=== PATIENT | female | born 2005 | race Two or more races ===

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

== ENCOUNTER 2025-02-06 19:02 | Inpatient (IN) | payer MEDICAID ==
[~2025-02-06] VITALS: Ht 160 cm; Wt 75.8 kg
[~2025-02-06 19:02] MED LIST: ACET500T58 PO; ALBUAER3 IN; AZITTAB PO; PRED20TA2 PO
--- NOTE | 2025-02-06 19:22 | ED.PDOC ---
History of Present Illness HPI Comments 20-year-old female came to ER for syncope. Patient states she had 2 syncopal attacks this week. Last episode was last night, she was at home, at the kitchen when she had a syncopal attack. States she was having headaches and dizziness all day. She denies any injury or pain after the fall. Chief Complaint: Syncope Time Seen by MD: 19:22 Primary Care Provider: WILMER Allergies: Coded Allergies: NO KNOWN ALLERGIES (Unverified , 02/27/21) Home Meds Active Scripts Azithromycin (Zithromax Z-Lalo) 250 Mg Tab, 250 MG PO DAILY, #1 PACK 0 Refills Prov:CARA CAVAZOS 08/09/22 Albuterol Sulfate (VENTOLIN MDI) 90 Mcg Ih, 2 PUFF IN QIDP, #1 INH 0 Refills Prov:CARA CAVAZOS 08/09/22 Prednisone (Prednisone) 20 Mg Tab, 20 MG PO BID for 5 Days, #10 TAB 0 Refills Prov:CARA CAVAZOS 08/09/22 Acetaminophen (Acetaminophen) 500 Mg Tab, 500 MG PO QIDP, #30 TAB 0 Refills Prov:CARA CAVAZOS 08/09/22 Information Source: Patient Mode of Arrival: Ambulatory Severity: Moderate Timing: Days Duration: Intermittent Past Medical History PAST MEDICAL HISTORY: Asthma Surgical History: Denies all surgeries 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 Family History Family History: Reviewed,noncontributory to illness Social History Smoker: Non-Smoker Alcohol: Denies ETOH Use Drugs: Denies Drug Use Lives In: Home Constitutional: denies: chills, diaphoresis, fatigue, fever, malaise, sweats, weakness, others EENTM: denies: blurred vision, double vision, ear bleeding, ear discharge, ear drainage, ear pain, ear ringing, eye pain, eye redness, hearing loss, mouth pain, mouth swelling, nasal discharge, nose bleeding, nose congestion, nose pain, photophobia, tearing, throat pain, throat swelling, voice changes, others Respiratory: denies: cough, hemoptysis, orthopnea, SOB at rest, shortness of breath, SOB with excertion, stridor, wheezing, others Cardiovascular: denies: chest pain, dizzy spells, diaphoresis, Dyspnea on exertion, edema, irregular heart beat, left arm pain, lightheadedness, palpitations, PND, syncope, others Gastrointestinal: denies: abdomen distended, abdominal pain, blood streaked bowels, constipated, diarrhea, dysphagia, difficulty swallowing, hematemesis, melena, nausea, poor appetite, poor fluid intake, rectal bleeding, rectal pain, vomiting, others Genitourinary: denies: abnormal vagina bleeding, burning, dyspareunia, dysuria, flank pain, frequency, hematuria, incontinence, pain, , vagina discharge, urgency, others Neurological: reports: dizziness, fainting, headache; denies: left sided numbness, left sided weakness, numbness, paresthesia, pre-existing deficit, right sided numbness, right sided weakness, seizure, speech problems, tingling, tremors, weakness, others Musculoskeletal: denies: back pain, gout, joint pain, joint swelling, muscle pain, muscle stiffness, neck pain, others Integumetry: denies: bruises, change in color, change in hair/nails, dryness, laceration, lesions, lumps, rash, wounds, others Allergic/Immunocompromised: denies: Difficulty Healing, Frequent Infections, Hives, Itching, others Hematologic/Lymphatic: denies: anemia, blood clots, easy bleeding, easy bruising, swollen glands, others Endocrine: denies: excessive hunger, excessive sweating, excessive thirst, excessive urination, flushing, intolerance to cold, intolerance to heat, unexplained weight gain, unexplained weight loss, others Psychiatric: denies: anxiety, bipolar disorder, depression, hopeless, panic disorder, schizophrenia, sleepless, suicidal, others Physical Exam General Appearance: No Apparent Distress, Normal HEENT: Normal ENT Inspection, Pharynx Normal, TMs Normal Neck: Full Range of Motion, Non-Tender, Normal, Normal Inspection Respiratory: Chest Non-Tender, Lungs Clear, No Accessory Muscle Use, No Respiratory Distress, Normal Breath Sounds Cardiovascular: No Edema, No JVD, No Murmur, No Gallop, Normal Peripheral Pulses, Regular Rate/Rhythm Breast Exam: Deferred Gastrointestinal: No Organomegaly, Non Tender, No Pulsatile Mass, Normal Bowel Sounds, Soft Genitalia: Deferred Pelvic: Deferred Rectal: Deferred Extremities: No calf tenderness, Normal capillary refill, Normal inspection, Normal range of motion, Non-tender, No pedal edema Musculoskeletal : Apperance: Normal Neurologic: Alert, 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 Was a procedure done?: No Differential Dx Considerations may include: Anemia, electrolyte imbalance, dehydration, syncope, headaches, seizure, pots syndrome X-Ray, Labs, Meds, VS Vital Signs Date Time Temp Pulse Resp B/P (MAP) Pulse Ox O2 Delivery O2 Flow Rate FiO2 02/06/25 19:06 98.7 83 13 130/76 99 98.7 Lab Test 02/06/25 20:30 02/06/25 19:37 Range/Units Troponin I High Sensitivity < 3 L < 3 L </=34 ng/L White Blood Count 6.4 4.4-10.8 10^3/uL Red Blood Count 4.43 4.0-5.20 10^6/uL Hemoglobin 13.8 12.2-16.2 g/dL Hematocrit 39.4 36.0-46.0 % Mean Corpuscular Volume 88.9 80.0-100.0 fL Mean Corpuscular Hemoglobin 31.2 28.0-32.0 pg Mean Corpuscular Hemoglobin Concent 35.1 32.0-36.0 g/dL Red Cell Distribution Width 13.4 11.8-14.3 % Platelet Count 252 140-450 10^3/uL Mean Platelet Volume 7.9 6.9-10.8 fL Neutrophils (%) (Auto) 55.4 37.0-80.0 % Lymphocytes (%) (Auto) 31.1 10.0-50.0 % Monocytes (%) (Auto) 11.0 0.0-12.0 % Eosinophils (%) (Auto) 2.1 0.0-7.0 % Basophils (%) (Auto) 0.4 0.0-2.0 % Neutrophils # (Auto) 3.6 1.6-8.6 10 ^3/uL Lymphocytes # (Auto) 2.0 0.4-5.4 10 ^3/uL Monocytes # (Auto) 0.7 0-1.3 10 ^3/uL Eosinophils # (Auto) 0.1 0-0.8 10 ^3/uL Basophils # (Auto) 0 0-0.2 10 ^3/uL Nucleated Red Blood Cells 0.1 % Sodium Level 141 136-145 mmol/L Potassium Level 4.8 3.5-5.1 mmol/L Chloride Level 105 98-107 mmol/L Carbon Dioxide Level 29 20-31 mmol/L Anion Gap 7 5-15 Blood Urea Nitrogen 13 9-23 mg/dL Creatinine 0.84 0.550-1.02 mg/dL Glomerular Filtration Rate Calc 102 >90 mL/min BUN/Creatinine Ratio 15.5 10.0-20.0 Serum Glucose 106 74-106 mg/dL Calcium Level 9.8 8.7-10.4 mg/dL Time of 1ST Reevaluation: 19:19 Reevaluation 1ST: Unchanged Patient Education/Counseling: Diagnosis, Treatment, Prognosis, Need For Follow Up Family Education/Counseling: No Family Present Comments Patient presents with multiple episodes of syncope. Although here we have not capture any arrhythmias, episodes, and the workup has been negative, with her multiple episodes, she will be admitted for monitoring of cardiac rhythms and further workups. SEPSIS Sepsis Screen Date sepsis recognized/suspect: Feb 06, 2025 Time Sepsis recognized/suspect: 1905 Recent Procedure: No On Antibiotic Therapy: No Respiratory Rate >20: No Heart Rate >90: No Temp<36 C (96.8 F) or >38.3 C: No SBP <90 or MAP <65 mmHG: No New Acute Mental Status Change: No Is the patient on CPAP, BIPAP,: No Physician Orders Continuous Ekg Monitoring 08,12,16,20,00,04 (02/06/25 19:24) Electrocardigram (02/06/25 19:24) Chest Xray 1 View (02/06/25 19:24) Test, Urine (02/06/25 19:24) Troponin-I Hs (02/06/25 22:24) Electrocardigram (02/06/25 20:24) Electrocardigram (02/06/25 22:24) Vital Signs Date Time Temp Pulse Resp B/P (MAP) Pulse Ox O2 Delivery O2 Flow Rate FiO2 02/06/25 19:06 98.7 83 13 130/76 99 98.7 Laboratory Tests Test 02/06/25 19:37 White Blood Count 6.4 10^3/uL (4.4-10.8) Departure 1 Departure Time of Disposition: 21:58 Impression: Primary Impression: Syncope Qualified Codes: R55 - Syncope and collapse Disposition: 09 ADMITTED INPATIENT Admit to: Tele Condition: Serious Discharged With: Self Critical Care Note Critical Care Time?: Yes (55 min-critical care time only) Critical care comment: Due to concerns for patients condition deteriorating, the care required my highest level of attention and readiness to intervene. I assessed the patient, reviewed the medical records, ordered the appropriate tests and treatments, then reassessed for results and responsiveness. I communicated with medical personnel and consultants and formulated a plan of care. Total critical care time excludes any procedures Stability Stability form required: No Heart Score Heart Score: Heart Score Response (Comments) Value History Slightly Suspicious 0 EKG Normal 0 Age <45 0 Risk Factors No known risk factors 0 Troponin Normal limit 0 Total 0 I personally scribed for SHELBY GLEZ MD ([email or web address]) on 02/06/25 at 19:22. Electronically submitted by Lawrence Cheung ([facility]). SHELBY GLEZ MD Feb 06, 2025 19:22
[2025-02-06 19:55] LABS: Hematocrit 39.4 % (36.0-46.0); Hemoglobin 13.8 g/dL (12.2-16.2); Mean Corpuscular Hemoglobin 31.2 pg (28.0-32.0); Mean Corpuscular Volume 88.9 fL (80.0-100.0); Nucleated Red Blood Cells % 0.1 %
[2025-02-06 20:14] LABS: Chloride 105 mmol/L (98-107); Potassium 4.8 mmol/L (3.5-5.1); Sodium 141 mmol/L (136-145)
[2025-02-06 20:15] LABS: Anion Gap 7 (5-15); Carbon Dioxide 29 mmol/L (20-31)
[2025-02-06 20:16] LABS: Calcium 9.8 mg/dL (8.7-10.4)
[2025-02-06 20:20] LABS: BUN/Creatinine Ratio 15.5 (10.0-20.0); Blood Urea Nitrogen 13 mg/dL (9-23)
[2025-02-06 20:22] LABS: Glucose 106 mg/dL (74-106)
[2025-02-07] VITALS (10 sets, daily range): BP systolic 104–126; BP diastolic 59–76; PULSE 17–101; RESP 17–20; TEMP 97.6–99.4; O2SAT 96–99
--- NOTE | 2025-02-07 00:29 | DVHHPRES ---
History of Present Illness Resident Creating Document: HAILE MONROE RESIDENT History of Present Illness Jayla Swenson is a 20 years with no past medical history who came to the ED with chief complaints of two episodes of syncope 1 on Sunday and 1 on evening. Patient states that she felt dizzy and had a severe frontal headache and mild shortness of breath before having these episodes, but did not have post confusion and was alert. As per mother patient lost consciousness for approximately 1-2 minutes. She also states that she was swollen in her hands and feet when this happened. Patient states that she did not have any head trauma after falling. Patient also states that she always has heavy bleeding with the menstruation since she was 13 years old. She states that she is sexually active. Patient will be admitted for further management. Surgical history: Denies Family history: Mother has vertigo Personal history: Denies smoking, drinking, any drug use Lives with: family PCP: Dr. Cohen Review of Systems Constitutional: Yes: Other (Dizziness); No: Fever, Chills, Sweats, Weakness, Malaise Eyes: No: Pain, Vision change, Conjunctivae inflammation, Eyelid inflammation, Other, Redness ENT: No: Ear pain, Ear discharge, Nose pain, Nose discharge, Nose congestion, Mouth pain, Mouth swelling, Throat pain, Throat swelling, Other Respiratory: Shortness of breath; No: Cough, Dry, SOB with excertion, Wheezing, Hemoptysis, Pleuritic Pain, Sputum, Wheezing, Other Cardiovascular: No: Chest Pain, Palpitations, Orthopnea, Paroxysmal Noc. Dyspnea, Edema, Lt Headedness, Other Gastrointestinal: No: Nausea, Vomiting, Abdominal Pain, Diarrhea, Constipation, Melena, Hematochezia, Other Genitourinary: No Dysuria, No Frequency, No Incontinence, No Hematuria, No Retention, No Other Skin: No: Rash, Lesions, Jaundice, Bruising, Other Neurological: Other (Headache,); No: Weakness, Numbness, Incoordination, Change in speech, Confusion, Seizures Allergies: Coded Allergies: NO KNOWN ALLERGIES (Unverified , 02/27/21) Exam Vital Signs Vital Signs Date Time Temp Pulse Resp B/P (MAP) Pulse Ox O2 Delivery O2 Flow Rate FiO2 02/07/25 00:04 98.5 67 18 112/72 (85) 97 98.5 Exam General: Patient alert and oriented in person, place and time. Patient followi ng commands. HEENT: Normocephalic, atraumatic, moist mucous membranes Respiratory/pulmonary: Clear lungs bilaterally, vesicular murmurs present in almost all lung dasilva, no associated crackles or wheezes. Cardiovascular: Normal heart sounds S1 and S2 with no associated murmurs Abdomen: Abdomen nondistended, there is no pain to palpation in any of the abdominal quadrants, no palpable masses. Extremities: There is no peripheral edema present at the lower extremities. Peripheral Pulses: 3+ Radial (R). 3+ Radial (L). 3+ Dorsalis pedis (R). 3+ Dorsalis pedis(L) Skin: No rashes or pruritus, there is no sacral edema present at this time. Neurological: Intact cranial nerves with no focal neurologic deficits Psych/mood: Normal Labs/Xrays Labs Test 02/06/25 20:30 02/06/25 19:37 Range/Units Troponin I High Sensitivity < 3 L </=34 ng/L White Blood Count 6.4 4.4-10.8 10^3/uL Red Blood Count 4.43 4.0-5.20 10^6/uL Hemoglobin 13.8 12.2-16.2 g/dL Hematocrit 39.4 36.0-46.0 % Mean Corpuscular Volume 88.9 80.0-100.0 fL Mean Corpuscular Hemoglobin 31.2 28.0-32.0 pg Mean Corpuscular Hemoglobin Concent 35.1 32.0-36.0 g/dL Red Cell Distribution Width 13.4 11.8-14.3 % Platelet Count 252 140-450 10^3/uL Mean Platelet Volume 7.9 6.9-10.8 fL Neutrophils (%) (Auto) 55.4 37.0-80.0 % Lymphocytes (%) (Auto) 31.1 10.0-50.0 % Monocytes (%) (Auto) 11.0 0.0-12.0 % Eosinophils (%) (Auto) 2.1 0.0-7.0 % Basophils (%) (Auto) 0.4 0.0-2.0 % Neutrophils # (Auto) 3.6 1.6-8.6 10 ^3/uL Lymphocytes # (Auto) 2.0 0.4-5.4 10 ^3/uL Monocytes # (Auto) 0.7 0-1.3 10 ^3/uL Eosinophils # (Auto) 0.1 0-0.8 10 ^3/uL Basophils # (Auto) 0 0-0.2 10 ^3/uL Nucleated Red Blood Cells 0.1 % Sodium Level 141 136-145 mmol/L Potassium Level 4.8 3.5-5.1 mmol/L Chloride Level 105 98-107 mmol/L Carbon Dioxide Level 29 20-31 mmol/L Anion Gap 7 5-15 Blood Urea Nitrogen 13 9-23 mg/dL Creatinine 0.84 0.550-1.02 mg/dL Glomerular Filtration Rate Calc 102 >90 mL/min BUN/Creatinine Ratio 15.5 10.0-20.0 Serum Glucose 106 74-106 mg/dL Calcium Level 9.8 8.7-10.4 mg/dL SEPSIS Sepsis Screen Date sepsis recognized/suspect: Feb 06, 2025 Time Sepsis recognized/suspect: 1905 Recent Procedure: No On Antibiotic Therapy: No Respiratory Rate >20: No Heart Rate >90: No Temp<36 C (96.8 F) or >38.3 C: No SBP <90 or MAP <65 mmHG: No New Acute Mental Status Change: No Is the patient on CPAP, BIPAP,: No Physician Orders Continuous Ekg Monitoring 08,12,16,20,00,04 (02/06/25 19:24) Electrocardigram (02/06/25 19:24) Chest Xray 1 View (02/06/25 19:24) Test, Urine (02/06/25 19:24) Electrocardigram (02/06/25 20:24) Electrocardigram (02/06/25 22:24) Emergency Dysrhythmia Protocol (02/06/25 23:06) Admit (02/07/25 00:25) Allergies (02/07/25 00:25) Code Status (02/07/25 00:25) Ondansetron Hcl (Zofran) (02/07/25 00:30) Complete Blood Count (02/07/25 04:00) Comprehensive Metabolic Panel (02/07/25 04:00) Condition: Serious (02/07/25 00:25) Acetaminophen Tablet (Tylenol Tablet) (02/07/25 00:30) Bedrest With Bathroom Privileg (02/07/25 00:25) Vital Signs Date Time Temp Pulse Resp B/P (MAP) Pulse Ox O2 Delivery O2 Flow Rate FiO2 02/07/25 00:04 98.5 67 18 112/72 (85) 97 98.5 02/06/25 19:06 98.7 83 13 130/76 99 98.7 Laboratory Tests Test 02/06/25 19:37 White Blood Count 6.4 10^3/uL (4.4-10.8) Assessment/Plan Assessment/Plan Assessment and plan # syncope likely ? Vasovagal other causes not ruled out yet -EKG - troponins negative - BNP - D-dimer - Echocardiogram - Chest x-ray - Head CT - Orthostatic vitals - TSH - B12 - Folate Goals of care addressed with the patient for more than 31 minutes: Full code status Case discussed with , patient and nurse Plan discussed with: Patient My Orders Orders - HAILE MONROE RESIDENT Procedure Category Date Status Time Admit ADMIT 02/07/25 Transmitted 00:25 Allergies KEENAN 02/07/25 In Process 00:25 Code Status CODE 02/07/25 Transmitted 00:25 Ondansetron Hcl PHA 02/07/25 Transmitted (Zofran) 00:30 Complete Blood Count LAB 02/07/25 Transmitted 04:00 Comprehensive LAB 02/07/25 Transmitted Metabolic Panel 04:00 Condition: Serious KEENAN 02/07/25 In Process 00:25 Acetaminophen Tablet PHA 02/07/25 Transmitted (Tylenol Tablet) 00:30 Bedrest With Bathroom KEENAN 02/07/25 In Process Privileg 00:25 Date of Service: Feb 07, 2025 Billing Provider: KEEGAN REYES MD Common Visit Codes: 91596-LLBAAHI INP/OBS CARE (HIGH) Secondary Visit Codes: 53812-RCTLVHUO CARE PLAN 30 MINUTES HAILE MONROE RESIDENT Feb 07, 2025 00:29 EBEN MARTINEZ RESIDENT Feb 07, 2025 08:10
[2025-02-07] MEDS ORDERED: ONDANSETRON HCL 4 MG/2 ML VIAL IV PRN (00:30)
[2025-02-07 04:48] LABS: Hematocrit 40.5 % (36.0-46.0); Hemoglobin 14.0 g/dL (12.2-16.2); Mean Corpuscular Hemoglobin 30.9 pg (28.0-32.0); Mean Corpuscular Volume 89.3 fL (80.0-100.0); Nucleated Red Blood Cells % 0.1 %
[2025-02-07 05:04] LABS: Alanine Aminotransferase 18 U/L (7-40); Albumin 4.4 g/dL (3.2-4.8); Alkaline Phosphatase 47 U/L (46-116); Anion Gap 8 (5-15); BUN/Creatinine Ratio 10.7 (10.0-20.0); Bilirubin, Total 0.5 mg/dL (0.2-1.0); Calcium 9.3 mg/dL (8.7-10.4); Carbon Dioxide 28 mmol/L (20-31); Chloride 104 mmol/L (98-107); Glucose 85 mg/dL (74-106); Potassium 4.6 mmol/L (3.5-5.1); Sodium 140 mmol/L (136-145); Total Protein 7.1 g/dL (5.7-8.2)
[2025-02-07 05:08] LABS: Blood Urea Nitrogen 8 mg/dL (9-23)
--- NOTE | 2025-02-07 05:31 | DVH ---
CHEST RADIOGRAPH Indication: SYNCOPE Technique: 1 view Comparison: XY CHEST XRAY 1 VIEW on DOS: 08/08/22, CHEST PORTABLE on DOS: 02/27/21 FINDINGS: Lines and Tubes: External leads. Lungs/Pleura: No focal consolidation, pleural effusion or pneumothorax. Cardiomediastinum: Unremarkable. Other: No acute osseous abnormality. IMPRESSION: 1. No acute cardiopulmonary abnormality.
[2025-02-07 12:23] LABS: Urine Protein, UAD Negative (Negative)
[2025-02-07 13:21] LABS: Amphetamine Screen, Urine Neg (NEGATIVE); Barbiturate Scree,Urine Neg (NEGATIVE); Benzodiazephine Screen, Urine Neg (NEGATIVE); Cannabinoid Screen, Urine Neg (NEGATIVE); Cocaine Screen, Urine Neg (NEGATIVE); Opiate Scree,Urine Neg (NEGATIVE); Phencyclidine Screen, Urine Neg (NEGATIVE)
--- NOTE | 2025-02-07 15:34 | DVH ---
CLINICAL INFORMATION: Syncope. Question stroke. TECHNIQUE: Axial imaging was obtained through the brain without contrast. Coronal and sagittal reform atted images were obtained, reviewed, and stored. Images were reviewed in brain and bone windows. Al l CT scans at this medical facility are performed using dose modulation techniques as appropriate to a performed exam including the following: Automated exposure control was utilized; adjustment of the MA and/or KV according to patient size; and use of iterative reconstruction technique. CTDIvol = 53.1 8 mGy DLP = 746.24 mGy-cm COMPARISON: None FINDINGS: There is no acute intracranial hemorrhage. No mass effect or midline shift. The ventricles and sulci are within normal limits in size for age. Basal cisterns are patent. The calvarium is unre markable. Paranasal sinuses and mastoid air cells are clear. IMPRESSION: No CT evidence of acute intracranial abnormality. Correlate with clinical findings. If clinically ind icated, MRI could be obtained to further evaluate for stroke.
[2025-02-07] MEDS: ACETAMINOPHEN 325 MG TAB PO PRN (20:02)
[2025-02-08 01:00] VITALS: BP 109/64; PULSE 97; RESP 20; TEMP 97.3; O2SAT 97
[2025-02-08 05:00] VITALS: BP 97/70; PULSE 85; RESP 20; TEMP 97.2; O2SAT 98
[2025-02-08 06:22] LABS: Hematocrit 39.0 % (36.0-46.0); Hemoglobin 13.9 g/dL (12.2-16.2); Mean Corpuscular Hemoglobin 31.4 pg (28.0-32.0); Mean Corpuscular Volume 88.0 fL (80.0-100.0); Nucleated Red Blood Cells % 0.1 %
[2025-02-08 06:28] LABS: Anion Gap 10 (5-15); Carbon Dioxide 26 mmol/L (20-31); Chloride 105 mmol/L (98-107); Potassium 4.2 mmol/L (3.5-5.1); Sodium 141 mmol/L (136-145)
[2025-02-08 06:29] LABS: Calcium 9.4 mg/dL (8.7-10.4)
[2025-02-08 06:34] LABS: BUN/Creatinine Ratio 12.2 (10.0-20.0); Blood Urea Nitrogen 11 mg/dL (9-23); Glucose 91 mg/dL (74-106)
[2025-02-08 08:00] VITALS: PULSE 63; PULSE 89; RESP 17; O2SAT 98
[2025-02-08 09:00] VITALS: BP 106/64; PULSE 89; RESP 17; TEMP 98.1; O2SAT 98
--- NOTE | 2025-02-08 13:20 | DVHDS2 ---
Discharge Summary Date of Admission Feb 07, 2025 at 00:25 Date of Discharge: Feb 08, 2025 Admitting Diagnosis Syncope possible secondary to vasovagal Labs/Diagnostic Data: Laboratory Results Test 02/08/25 05:35 02/07/25 11:30 02/07/25 04:00 02/07/25 00:46 White Blood Count 6.3 10^3/uL (4.4-10.8) Red Blood Count 4.43 10^6/uL (4.0-5.20) Hemoglobin 13.9 g/dL (12.2-16.2) Hematocrit 39.0 % (36.0-46.0) Mean Corpuscular Volume 88.0 fL (80.0-100.0) Mean Corpuscular Hemoglobin 31.4 pg (28.0-32.0) Mean Corpuscular Hemoglobin Concent 35.7 g/dL (32.0-36.0) Red Cell Distribution Width 13.8 % (11.8-14.3) Platelet Count 250 10^3/uL (140-450) Mean Platelet Volume 8.1 fL (6.9-10.8) Neutrophils (%) (Auto) 51.8 % (37.0-80.0) Lymphocytes (%) (Auto) 33.2 % (10.0-50.0) Monocytes (%) (Auto) 12.6 % (0.0-12.0) Eosinophils (%) (Auto) 2.2 % (0.0-7.0) Basophils (%) (Auto) 0.2 % (0.0-2.0) Neutrophils # (Auto) 3.3 10 ^3/uL (1.6-8.6) Lymphocytes # (Auto) 2.1 10 ^3/uL (0.4-5.4) Monocytes # (Auto) 0.8 10 ^3/uL (0-1.3) Eosinophils # (Auto) 0.1 10 ^3/uL (0-0.8) Basophils # (Auto) 0 10 ^3/uL (0-0.2) Nucleated Red Blood Cells 0.1 % Sodium Level 141 mmol/L (136-145) Potassium Level 4.2 mmol/L (3.5-5.1) Chloride Level 105 mmol/L (98-107) Carbon Dioxide Level 26 mmol/L (20-31) Anion Gap 10 (5-15) Blood Urea Nitrogen 11 mg/dL (9-23) Creatinine 0.90 mg/dL (0.550-1.02) Glomerular Filtration Rate Calc 94 mL/min (>90) BUN/Creatinine Ratio 12.2 (10.0-20.0) Serum Glucose 91 mg/dL (74-106) Calcium Level 9.4 mg/dL (8.7-10.4) Urine Color Light-yellow (Yellow) Urine Clarity Turbid (Clear) Urine pH 6.5 (5.0-9.0) Urine Specific [place] 1.017 (1.001-1.035) Urine Protein Negative (Negative) Urine Ketones Negative (Negative) Urine Blood Negative /uL (Negative) Urine Nitrite Negative (Negative) Urine Bilirubin Negative (Negative) Urine Urobilinogen Normal mg/dL (Negative) Urine Leukocyte Esterase Negative /uL (Negative) Urine RBC 8 /hpf (0 - 4) Urine Microscopic WBC 2 /HPF (0-5) Urine Squamous Epithelial Cells Mod /hpf (<5) Urine Bacteria Few /hpf (None Seen) Urine Mucus Few (None Seen) Urine Glucose Normal mg/dL (Normal) Urine Test Negative (Negative) Urine Opiates Screen Neg (NEGATIVE) Urine Fentanyl Screen Neg (NEGATIVE) Urine Barbiturates Screen Neg (NEGATIVE) Urine Phencyclidine Screen Neg (NEGATIVE) Urine Amphetamines Screen Neg (NEGATIVE) Urine Benzodiazepines Screen Neg (NEGATIVE) Urine Cocaine Screen Neg (NEGATIVE) Urine Cannabinoids Screen Neg (NEGATIVE) Total Bilirubin 0.5 mg/dL (0.2-1.0) Aspartate Amino Transferase (AST) 23 U/L (13-40) Alanine Aminotransferase (ALT) 18 U/L (7-40) Alkaline Phosphatase 47 U/L (46-116) Total Protein 7.1 g/dL (5.7-8.2) Albumin 4.4 g/dL (3.2-4.8) D-Dimer, Quantitative < 0.19 mg/L FEU (0.0-0.49) Troponin I High Sensitivity < 3 ng/L (</=34) B-Type Natriuretic Peptide 7.17 pg/mL (0-100) Beta HCG, Quantitative < 0.0 mIU/mL (1.5-4.2) Other Laboratory Tests 02/08/25 05:35 Brief Hx & Hospital Course: This is a 20 years old female with no known past medical history come to emergency department because of syncopal episode x2. She has two episodes of syncope 1 on Sunday and 1 on evening. Patient apparently felt dizzy and had severe frontal headache and mild shortness for breath before she passing out. Per mother patient has lost consciousness about 1-2 minutes. She did not have any postictal symptoms. She started feeling swollen of her hand and feet 2 in happened. She did not have any head trauma after falling. The patient stated that she always had heavy menstrual period since the time she is 13 years old. Most of the time during her menstrual, she feels dizzy but never pass out. The patient was admitted. Her hemoglobin was stable. CT head is negative for acute process. Echo showed normal EF at 65%. The patient no longer feel dizzy or having any syncopal episode. Patient received IV fluid resuscitation. I am going to discharge the patient home today. Advised the patient to follow up with primary care physician 1-2 weeks. Advised to drink fluid and keep hydration. Physical exam: HEENT: Normocephalic atraumatic pupils equal react to light and accommodation. Extraocular muscles intact, conjunctiva pink, oropharynx moist, no thrush, no exudate. Lymphatic: No lymphadenopathy Cardiovascular exam: S1, S2 was heard. No murmurs, rubs, gallops Lung: Clear on auscultation bilaterally, no wheeze, rale, rhonchi. GI: Abdominal soft, nondistended, nontenderness, positive bowel sounds. Extremity: No crepitus, cyanosis, edema. Pedal pulses present bilateral. Full range of motion. Skin: Normal turgor, no rash. Psych: Alert, oriented x3. Neurology: No focal deficits, cranial nerve II to XII grossly intact. This medical document was created using an electronic medical record system with [employer] direct computerized dictation system. Although this document has been carefully reviewed, there may still be some phonetic and typographical errors. These areas are purely typographical due to imperfections of the software programs, and do not reflect any compromise in the patient's medical care. Condition at Discharge: Stable Final Diagnosis/Problems List Syncope secondary to vasovagal Dehydration Discharge Disposition: Home Discharge Instruct/Medications Diet: Regular Activity: No Restrictions, As Tolerated Follow Up/Referral: PCP 1-2 WEEKS Medications: RESUME HOME MEDS Scheduled Acetaminophen (Acetaminophen), 500 MG PO QIDP Albuterol Sulfate (Ventolin Mdi), 2 PUFF IN QIDP Azithromycin (Zithromax Z-Lalo), 250 MG PO DAILY Prednisone (Prednisone), 20 MG PO BID Discharge Statement: "Patient was advised to return to the ER or call 911 if any headaches, dizziness, shortness of breath, chest pain, abdominal pain, bleeding, fevers, or worsening of medical condition. Patient was counseled about treatment plan, medications, possible side effects, patientverbalized understanding. All questions were answered to the best of my ability. This discharge took greater then 30 minutes in planning, reviewing documentation, counseling the patient, and discussing with other team members." ASSESSMENT ASSESSMENT Assessment SYNCOPE DEHYDRATION Date of Service: Feb 08, 2025 Billing Provider: DINORA HUMPHREY MD Common Visit Codes: 31059-SWB/OBS DISCH DAY >30min DINORA HUMPHREY MD Feb 08, 2025 13:20
[2025-02-08 14:21] VITALS: BP 110/73; PULSE 78; RESP 16; TEMP 36.7; O2SAT 97
[2025-02-09 11:10] LABS: Hepatitis B Surface Antigen Negative (Negative); Hepatitis C Antibody Negative (Negative)
--- NOTE | 2025-02-10 13:40 | DVHSR ---
APPROVED REPORT EXAM: Two-dimensional and M-mode echocardiogram with Doppler and color Doppler. Blood Pressure: 97/70 mmHg INDICATION Syncope RISK FACTORS Height: 63, Weight: 167 DIMENSIONS LVDd4.5 (3.8-5.7cm)LA (2D)3.3 (1.9-4.0cm)Aortic Root3.2 (2.0-3.7cm) LVDs2.9 (2.5-4.0cm)LA (MM) (1.9-4.0cm)Aortic Cusp Exc1.8 (1.5-2.0cm) EF (%) 65.0 (55-70%)Rt. Atrium3.3 (1.9-4.0cm)Asc. Aorta cm IVSd0.8 (0.7-1.1cm)RV (D) (1.8-2.4cm) PWd0.8 (0.7-1.1cm) Mitral Valve MitralMitral Stenosis E wave0.85m/sMV Mean GR.mmHg A wave0.46m/sMV Peak GR.mmHg E/A ratio1.82D MVAcm2 DECEL [id number] 1/2 [id number] IVRTmsDop MVA1.76cm2 Aortic Valve Aortic ValveAortic Stenosis V11.15m/Delio Mean GR.4mmHg V21.32m/Delio Peak GR.7mmHg LVOT Diameter1.9 (1.8-2.4cm)Doppler AVA2.47cm2 Pulmonic Valve V20.92m/s Tricuspid Valve TR Velocity1.47m/s [id number] Conclusion Technically good study sinus rhythm. Normal chamber sizes. Valves are normal. EF of 55-60% with normal RV function. Dopplers normal. No pericardial effusion masses or vegetations.
== END 2025-02-08 15:20 | disposition home or self-care (01) | DRG 204 ==
LOC: ER 19:04 → UNDOADMIN 23:06 → OVERFLOW 23:06 → TELE-CENTR 02-07 04:10
PROVIDERS: ATTEND Internal Medicine
DX: R55 Syncope and collapse (principal); E86.0 Dehydration; J45.909 Unspecified asthma, uncomplicated; N92.0 Excessive and frequent menstruation with regular cycle
CPT/HCPCS: 36415; 70450; 71045; 80048; 80053; 80307; 81001; 81025; 83880; 84484; 84702; 85025; 85379; 86803; 87340; 93306; 99291; G0378